=== PATIENT | female | born 1950 | race Caucasian/White ===

== ENCOUNTER 2017-05-08 13:18 | Inpatient (IN) | payer MEDICARE ==
[~2017-05-08] VITALS: Ht 170.2 cm; Wt 109.8 kg
[~2017-05-08 13:18] MED LIST: PANTOPRAZOLE 40 MG IV IVPush ONE
[2017-05-08] MEDS ORDERED: ENALAPRILAT 1.25 MG/ML, 2ML IV ONE (13:30)
[2017-05-08] MEDS ORDERED: ACETAMINOPHEN 325 MG TABLET PO ONE (13:30)
[2017-05-08] MEDS ORDERED: SODIUM CHLORIDE FLUSH 10ML SYR IVF ONE (13:30)
[2017-05-08] MEDS ORDERED: ENALAPRILAT 1.25 MG/ML, 2ML ONE (13:46)
[2017-05-08] MEDS ORDERED: ACETAMINOPHEN 325 MG TABLET ONE (13:46)
[2017-05-08] MEDS ORDERED: PLEASE ENTER ALLERGIES MC SCH ×2 (14:00)
[2017-05-08] MEDS ORDERED: PLEASE ENTER HEIGHT AND WEIGHT MC SCH (14:00)
[2017-05-08 14:01] LABS: ASPARTATE AMINO TRANSFERASE 24 U/L (15-37); BLOOD UREA NITROGEN 12 mg/dL (7-18)
[2017-05-08 14:05] LABS: IS PT STATUS REG ER OR PRE ER? YES
[2017-05-08] MEDS ORDERED: HYDROCHLOROTHIAZIDE 12.5 MG CAPSULE PO ONE (14:30)
[2017-05-08] MEDS ORDERED: BUDE10.2 INH (15:07)
[2017-05-08] MEDS ORDERED: PARO40TA3 PO (15:07)
[2017-05-08] MEDS ORDERED: CLOB15CR19 TP (15:07)
[2017-05-08] MEDS ORDERED: FLUT16SP NAS (15:07)
[2017-05-08] MEDS ORDERED: MULT-717 PO (15:07)
[2017-05-08] MEDS ORDERED: ALBU8.5H3 INH (15:07)
[2017-05-08] MEDS ORDERED: GLIP5TAB10 PO (15:07)
[2017-05-08] MEDS ORDERED: HYDR4CRE5 TP (15:07)
[2017-05-08] MEDS ORDERED: FEXO180T5 PO (15:07)
[2017-05-08] MEDS ORDERED: CARV6.252 PO (15:07)
[2017-05-08] MEDS ORDERED: BECL8.7A5 INH (15:07)
[2017-05-08] MEDS ORDERED: MONT10TA9 PO (15:07)
[2017-05-08] MEDS ORDERED: PIOG15TA4 PO (15:07)
[2017-05-08] MEDS ORDERED: ATOR80TA75 PO (15:07)
[2017-05-08] MEDS ORDERED: ASPI-496 PO (15:07)
[2017-05-08] MEDS ORDERED: TIOT18CA INH (15:07)
[2017-05-08] MEDS ORDERED: CIME300T PO (15:07)
[2017-05-08] MEDS ORDERED: METF10002 PO (15:07)
[2017-05-08] MEDS ORDERED: LANS15CA5 PO (15:07)
[2017-05-08] MEDS ORDERED: ENALAPRILAT 1.25 MG/ML, 2ML IVPush PRN (17:30)
[2017-05-08] MEDS: NICOTINE 14MG/24 HR PATCH.TD24 TD SCH (17:30)
[2017-05-08] MEDS ORDERED: HEPARIN 5,000 UNITS/ML, 1ML IV ONE (17:30)
[2017-05-08] MEDS ORDERED: morphine SULFATE 10 MG/ML, 1ML IVPush PRN (17:30)
[2017-05-08] MEDS ORDERED: ENOXAPARIN 40 MG/0.4 ML SQ SCH (17:30)
[2017-05-08] MEDS ORDERED: ONDANSETRON 2MG/ML, 2ML IVPush PRN (17:30)
[2017-05-08] MEDS ORDERED: HYDROcodone/APAP 5/325 TABLET PO PRN (17:30)
[2017-05-08] MEDS ORDERED: HEPARIN 25,000 UNITS/500ML PMX 500 ML IV PRN (17:30)
[2017-05-08] MEDS ORDERED: HEPARIN 5,000 UNITS/ML, 1ML IV PRN (17:30)
[2017-05-08 17:54] VITALS: BP 172/88
[2017-05-08] MEDS: CARVEDILOL 12.5 MG TABLET PO SCH (19:16)
[2017-05-08 20:24] LABS: IS PT STATUS REG ER OR PRE ER? NO
[2017-05-08 20:35] VITALS: BP 120/71
[2017-05-08] MEDS: ATORVASTATIN 80 MG TABLET PO SCH (20:36)
[2017-05-08] MEDS: TEMAZEPAM 15 MG CAPSULE PO PRN (22:18)
[2017-05-09 01:34] VITALS: BP 130/79
[2017-05-09 02:42] LABS: ASPARTATE AMINO TRANSFERASE 23 U/L (15-37); BLOOD UREA NITROGEN 16 mg/dL (7-18)
[2017-05-09 02:48] LABS: IS PT STATUS REG ER OR PRE ER? NO
[2017-05-09] MEDS: ASPIRIN 81 MG TABLET EC PO SCH (06:13)
[2017-05-09] MEDS: CARVEDILOL 12.5 MG TABLET PO SCH ×2 (06:13→17:25)
[2017-05-09 08:39] VITALS: BP 161/83
[2017-05-09] MEDS: FERROUS GLUCONATE 324 MG TABLET PO SCH (08:52)
[2017-05-09] MEDS: VALSARTAN 160 MG TABLET PO SCH (08:52)
[2017-05-09] MEDS ORDERED: POTASSIUM CHLORIDE 20 MEQ TAB.ER.PRT PO ONE ×3 (09:00→14:30)
[2017-05-09 09:26] LABS: TOTAL IRON BINDING CAPACITY 408 mcg/dL (250-450)
[2017-05-09] MEDS: IRON SUCROSE COMPLEX 100MG/5ML IV SCH (10:52)
[2017-05-09] MEDS ORDERED: SODIUM CHLORIDE 0.9% 1,000 ML IV SCH (12:35)
[2017-05-09 12:45] VITALS: BP 132/78
[2017-05-09] MEDS ORDERED: FENTANYL PF 100 MCG/2ML ONE (13:28)
[2017-05-09] MEDS ORDERED: MIDAZOLAM 1 MG/ML, 5ML ONE (13:28)
[2017-05-09] MEDS ORDERED: VERAPAMIL 2.5 MG/ML, 2ML ONE (13:28)
[2017-05-09] MEDS ORDERED: LIDOCAINE 2%, 20ML ONE (13:29)
[2017-05-09] MEDS ORDERED: HEPARIN 1,000 UNITS/ML, 10ML ONE (13:29)
[2017-05-09] MEDS: PANTOPRAZOLE 40 MG IV IVPush SCH (14:30)
[2017-05-09] MEDS ORDERED: ACETAMINOPHEN 325 MG TABLET PO PRN (14:30)
[2017-05-09] MEDS: SODIUM CHLORIDE 0.9% 1,000 ML IV SCH ×2 (14:50→23:32)
[2017-05-09] MEDS: PANTOPRAZOLE 80 MG in SODIUM CHLORIDE 0.9% 100 ML IV SCH ×2 (14:50→23:32)
[2017-05-09] MEDS: SUCRALFATE 1 GM TABLET PO SCH ×2 (14:51→21:11)
[2017-05-09] MEDS: NICOTINE 14MG/24 HR PATCH.TD24 TD SCH (14:51)
[2017-05-09] MEDS ORDERED: DICYCLOMINE 10 MG CAPSULE PO ONE (21:00)
[2017-05-09] MEDS: PAROXETINE 20 MG TABLET PO SCH (21:12)
[2017-05-09] MEDS: ATORVASTATIN 80 MG TABLET PO SCH (21:12)
[2017-05-09] MEDS: TEMAZEPAM 15 MG CAPSULE PO PRN (21:12)
[2017-05-09 21:13] VITALS: BP 121/72
[2017-05-10] VITALS (14 sets, daily range): BP systolic 104–154; BP diastolic 66–82
[2017-05-10] MEDS: PANTOPRAZOLE 40 MG IV IVPush SCH (02:30)
[2017-05-10 05:56] LABS: BLOOD UREA NITROGEN 13 mg/dL (7-18)
[2017-05-10] MEDS: ASPIRIN 81 MG TABLET EC PO SCH (06:02)
[2017-05-10] MEDS: CARVEDILOL 12.5 MG TABLET PO SCH ×2 (06:02→18:15)
[2017-05-10] MEDS ORDERED: FUROSEMIDE 40 MG/4 ML IV ONE (06:05)
[2017-05-10] MEDS: SODIUM CHLORIDE 0.9% 1,000 ML IV SCH (06:11)
[2017-05-10] MEDS ORDERED: DEXTROSE 50%, 50ML SYRINGE IVPush PRN (08:00)
[2017-05-10] MEDS ORDERED: GLUCAGON 1 MG IM PRN (08:00)
[2017-05-10] MEDS: FERROUS GLUCONATE 324 MG TABLET PO SCH (08:00)
[2017-05-10] MEDS: INSULIN REGULAR 100 UNITS/ML, 3ML VIAL SQ-INSULIN SCH ×4 (08:00→20:58)
[2017-05-10] MEDS ORDERED: DEXTROSE 4 GM TAB.CHEW PO PRN (08:00)
[2017-05-10] MEDS: SUCRALFATE 1 GM TABLET PO SCH ×4 (08:25→20:42)
[2017-05-10] MEDS ORDERED: DICYCLOMINE 10 MG CAPSULE PO PRN (09:00)
[2017-05-10 09:25] LABS: IS PT STATUS REG ER OR PRE ER? NO
[2017-05-10] MEDS: PANTOPRAZOLE 80 MG in SODIUM CHLORIDE 0.9% 100 ML IV SCH ×2 (09:41→18:15)
[2017-05-10] MEDS: VALSARTAN 160 MG TABLET PO SCH (10:10)
[2017-05-10] MEDS: IRON SUCROSE COMPLEX 100MG/5ML IV SCH (10:10)
[2017-05-10] MEDS: SODIUM CHLORIDE FLUSH 10ML SYR IVF SCH ×2 (10:10→20:43)
[2017-05-10] MEDS ORDERED: INSULIN ASPART 100 UNITS/ML, PEN SQ-INSULIN SCH (11:00)
[2017-05-10] MEDS ORDERED: CHLORHEXIDINE MOUTHWASH 15 ML UDC MM PRN (11:00)
[2017-05-10] MEDS: DOCUSATE 100 MG CAPSULE PO SCH ×2 (12:07→20:42)
[2017-05-10] MEDS ORDERED: FUROSEMIDE 40 MG/4 ML ONE (14:10)
[2017-05-10] MEDS ORDERED: NITROGLYCERIN 0.4 MG/SPRAY SL PRN (19:30)
[2017-05-10] MEDS ORDERED: NITROGLYCERIN 0.4 MG BOTTLE (25 TABS) SL PRN (19:30)
[2017-05-10] MEDS ORDERED: NITROGLYCERIN OINT 2%, 1GM TP ONE (20:30)
[2017-05-10] MEDS: PAROXETINE 20 MG TABLET PO SCH (20:42)
[2017-05-10] MEDS: ATORVASTATIN 80 MG TABLET PO SCH (20:42)
[2017-05-10] MEDS: TEMAZEPAM 15 MG CAPSULE PO PRN ×2 (20:42→23:40)
[2017-05-10] MEDS: MUPIROCIN OINT 2%, 22GM TP SCH (20:43)
[2017-05-10] MEDS ORDERED: SODIUM CHLORIDE FLUSH 10ML SYR IVF SCH (21:00)
[2017-05-11] MEDS: ASPIRIN 81 MG TABLET EC PO SCH (03:13)
[2017-05-11 04:17] VITALS: BP_SYST 145; BP_SYST 151; BP_DIAS 80; BP_DIAS 86
[2017-05-11] MEDS: CARVEDILOL 12.5 MG TABLET PO SCH (05:00)
[2017-05-11] MEDS: MUPIROCIN OINT 2%, 22GM TP SCH ×2 (05:00→21:31)
[2017-05-11] MEDS ORDERED: METOPROLOL TARTRATE 25 MG TABLET PO ONE (05:00)
[2017-05-11 05:06] LABS: BLOOD UREA NITROGEN 17 mg/dL (7-18)
[2017-05-11 05:09] LABS: ASPARTATE AMINO TRANSFERASE 17 U/L (15-37)
[2017-05-11] MEDS: PANTOPRAZOLE 80 MG in SODIUM CHLORIDE 0.9% 100 ML IV SCH ×2 (05:33→15:48)
[2017-05-11 06:33] VITALS: BP 132/77
[2017-05-11] MEDS: SUCRALFATE 1 GM TABLET PO SCH ×4 (07:00→21:55)
[2017-05-11] MEDS ORDERED: MANNITOL PMX 20% 500 ML IVPB PRN (07:30)
[2017-05-11] MEDS ORDERED: PHENYLEPHRINE 10 MG in SODIUM CHLORIDE 0.9% 249 ML IV PRN ×2 (07:30→13:06)
[2017-05-11] MEDS ORDERED: REGULAR INSULIN 62.5 UNITS in SODIUM CHLORIDE 0.9% 249.375 ML IV PRN ×2 (07:30→13:06)
[2017-05-11] MEDS ORDERED: DEXMEDETOMIDINE 200 MCG in SODIUM CHLORIDE 0.9% 48 ML IV SCH (07:30)
[2017-05-11] MEDS ORDERED: ALBUMIN HUMAN 5% 500 ML IV ONE (07:30)
[2017-05-11] MEDS ORDERED: FENTANYL PF 1000 MCG/20ML ONE (07:30)
[2017-05-11] MEDS ORDERED: CEFUROXIME 1.5 GM in SODIUM CHLORIDE 0.9% 50 ML IVPB PRN (07:30)
[2017-05-11] MEDS ORDERED: VANCOMYCIN 1,500 MG in SODIUM CHLORIDE 0.9% 250 ML IVPB PRN (07:30)
[2017-05-11] MEDS ORDERED: EPINEPHRINE 2 MG in SODIUM CHLORIDE 0.9% 248 ML IV SCH (07:30)
[2017-05-11] MEDS ORDERED: POTASSIUM CHLORIDE 80 MEQ, SODIUM BICARBONATE 8.4% 10 MEQ, MAGNESIUM SULFATE 0.5 GM, LI... IV PRN (07:30)
[2017-05-11] MEDS ORDERED: MIDAZOLAM 10MG/2 ML ONE (07:30)
[2017-05-11] MEDS ORDERED: ROCURONIUM 10 MG/ML ONE (08:04)
[2017-05-11] MEDS ORDERED: PROPOFOL 10 MG/ML, 20ML ONE (08:04)
[2017-05-11] MEDS: IRON SUCROSE COMPLEX 100MG/5ML IV SCH ×2 (09:00→17:08)
[2017-05-11] MEDS: DOCUSATE 100 MG CAPSULE PO SCH ×2 (09:00→21:31)
[2017-05-11] MEDS ORDERED: HEPARIN 1,000 UNITS/ML, 10ML IV ONE (09:07)
[2017-05-11] MEDS ORDERED: PAPAVERINE 30 MG/ML, 2ML IVPush ONE (09:07)
[2017-05-11] MEDS ORDERED: SODIUM CHLORIDE 0.9% 1,000 ML IV ONE (13:06)
[2017-05-11] MEDS ORDERED: SODIUM CHLORIDE 0.9% 1,000 ML IV PRN (13:06)
[2017-05-11] MEDS ORDERED: DEXMEDETOMIDINE 200 MCG in SODIUM CHLORIDE 0.9% 48 ML IV PRN (13:06)
[2017-05-11] MEDS ORDERED: NITROGLYCERIN/D5W PMX 250 ML IV PRN (13:06)
[2017-05-11] MEDS ORDERED: DOBUTAMINE 250 MG in SODIUM CHLORIDE 0.9% 230 ML IV PRN (13:06)
[2017-05-11] MEDS ORDERED: ALBUMIN HUMAN 25% 50 ML ONE (13:23)
[2017-05-11] MEDS ORDERED: AMINOCAPROIC ACID 250 MG/ML, 20ML ONE (13:23)
[2017-05-11] MEDS ORDERED: PROTAMINE SULFATE 10 MG/ML, 25ML ONE (13:23)
[2017-05-11] MEDS ORDERED: CALCIUM CHLORIDE 10%, 10ML SYR ONE (13:23)
[2017-05-11] MEDS ORDERED: SODIUM BICARBONATE 1 MEQ/ML, 50ML VIAL ONE (13:24)
[2017-05-11] MEDS ORDERED: HEPARIN 1,000 UNITS/ML, 30ML ONE ×2 (13:24→13:27)
[2017-05-11] MEDS ORDERED: methylPREDNISolone SOD SUCC 125 MG/2 ML ONE (13:25)
[2017-05-11] MEDS ORDERED: LIDOCAINE 2% 100MG/5ML SYRINGE ONE (13:25)
[2017-05-11] MEDS ORDERED: MILRINONE 1 MG/ML, 10ML IV ONE (13:25)
[2017-05-11] MEDS ORDERED: PAPAVERINE 30 MG/ML, 2ML ONE (13:25)
[2017-05-11] MEDS ORDERED: VASOPRESSIN 20 UNIT/ML, 1ML ONE (13:26)
[2017-05-11] MEDS ORDERED: HEPARIN 1,000 UNITS/ML, 10ML ONE (13:29)
[2017-05-11] MEDS ORDERED: BISACODYL 5 MG EC TABLET PO PRN (13:30)
[2017-05-11] MEDS ORDERED: MIDAZOLAM 1 MG/ML, 5ML IVPush PRN (13:30)
[2017-05-11] MEDS ORDERED: GLUCAGON 1 MG IM PRN (13:30)
[2017-05-11] MEDS ORDERED: EPINEPHRINE 2 MG in SODIUM CHLORIDE 0.9% 248 ML IV PRN (13:30)
[2017-05-11] MEDS ORDERED: PROCHLORPERAZINE 5 MG/ML, 2ML IVPush PRN (13:30)
[2017-05-11] MEDS ORDERED: DEXTROSE 50%, 50ML SYRINGE IVPush PRN (13:30)
[2017-05-11] MEDS ORDERED: SODIUM BICARB 8.4%, 50ML SYRINGE IV PRN (13:30)
[2017-05-11] MEDS ORDERED: CEFUROXIME 1.5 GM in SODIUM CHLORIDE 0.9% 50 ML IVPB SCH (13:30)
[2017-05-11] MEDS ORDERED: MEPERIDINE/PF 25MG/0.5ML IVPush PRN (13:30)
[2017-05-11] MEDS: KSCALE TO 4.5 IV SCH ×2 (13:30→19:30)
[2017-05-11] MEDS ORDERED: ACETAMINOPHEN 650 MG SUPP PR PRN (13:30)
[2017-05-11] MEDS ORDERED: HYDROcodone/APAP 10/325 MG TABLET PO PRN (13:30)
[2017-05-11] MEDS ORDERED: BISACODYL 10 MG SUPP PR PRN (13:30)
[2017-05-11] MEDS ORDERED: DEXTROSE 4 GM TAB.CHEW PO PRN (13:30)
[2017-05-11] MEDS ORDERED: ACETAMINOPHEN 325 MG TABLET PO PRN (13:30)
[2017-05-11] MEDS ORDERED: LACTATED RINGERS 500 ML IVBOLUS PRN (13:30)
[2017-05-11 13:35] LABS: ABG COLLECTION SITE ARTERIAL LINE; FIO2 100 %
[2017-05-11] MEDS ORDERED: POTASSIUM CHLORIDE PMX 100 ML IV ONE (14:30)
[2017-05-11] MEDS: MAGNESIUM SULFATE 1 GM in SODIUM CHLORIDE 0.9% 50 ML IVPB SCH (15:48)
[2017-05-11] MEDS: morphine SULFATE 10 MG/ML, 1ML IVPush PRN ×2 (17:07→19:35)
[2017-05-11] MEDS: VANCOMYCIN 1,500 MG in SODIUM CHLORIDE 0.9% 250 ML IVPB SCH (19:36)
[2017-05-11] MEDS: SODIUM CHLORIDE FLUSH 10ML SYR IVF SCH (19:36)
[2017-05-11] MEDS: INSULIN ASPART 100 UNITS/ML, PEN SQ-INSULIN PRN ×3 (20:44→22:36)
[2017-05-11] MEDS ORDERED: DOCUSATE 100 MG CAPSULE PO SCH (21:00)
[2017-05-11] MEDS ORDERED: MUPIROCIN OINT 2%, 22GM NAS SCH (21:00)
[2017-05-11] MEDS: OXYcodone IR 5MG TABLET PO PRN (21:43)
[2017-05-11] MEDS: ACETAMINOPHEN 325 MG TABLET PO PRN (21:43)
[2017-05-11] MEDS: TEMAZEPAM 15 MG CAPSULE PO PRN ×2 (21:43→23:38)
[2017-05-11] MEDS: ATORVASTATIN 80 MG TABLET PO SCH (21:55)
[2017-05-11] MEDS: PAROXETINE 20 MG TABLET PO SCH (21:55)
[2017-05-12] MEDS: KSCALE TO 4.5 IV SCH ×4 (01:30→19:30)
[2017-05-12] MEDS: PANTOPRAZOLE 80 MG in SODIUM CHLORIDE 0.9% 100 ML IV SCH (01:58)
[2017-05-12] MEDS: OXYcodone IR 5MG TABLET PO PRN ×5 (03:04→19:32)
[2017-05-12 04:51] LABS: ABG COLLECTION SITE ARTERIAL LINE
[2017-05-12] MEDS: INSULIN ASPART 100 UNITS/ML, PEN SQ-INSULIN PRN ×4 (05:32→21:14)
[2017-05-12] MEDS: ACETAMINOPHEN 325 MG TABLET PO PRN (05:39)
[2017-05-12 06:29] LABS: BLOOD UREA NITROGEN 21 mg/dL (7-18)
[2017-05-12] MEDS: ASPIRIN 81 MG TABLET EC PO SCH (07:52)
[2017-05-12] MEDS: SUCRALFATE 1 GM TABLET PO SCH ×4 (07:52→20:59)
[2017-05-12] MEDS: VANCOMYCIN 1,500 MG in SODIUM CHLORIDE 0.9% 250 ML IVPB SCH (07:52)
[2017-05-12] MEDS: IRON SUCROSE COMPLEX 100MG/5ML IV SCH (08:34)
[2017-05-12] MEDS: CARVEDILOL 3.125 MG TABLET PO SCH ×2 (08:34→17:54)
[2017-05-12] MEDS: SODIUM CHLORIDE FLUSH 10ML SYR IVF SCH ×2 (08:34→20:58)
[2017-05-12] MEDS: DOCUSATE 100 MG CAPSULE PO SCH ×2 (08:34→21:02)
[2017-05-12] MEDS: MUPIROCIN OINT 2%, 22GM TP SCH ×2 (08:35→21:07)
[2017-05-12] MEDS ORDERED: PANTOPRAZOLE 40 MG IV IVPush SCH (09:00)
[2017-05-12] MEDS ORDERED: FUROSEMIDE 20 MG/2 ML ONE (09:15)
[2017-05-12] MEDS ORDERED: FUROSEMIDE 20 MG/2 ML IV ONE (09:30)
[2017-05-12] MEDS: PANTOPROZOLE 40MG TABLET PO SCH (10:15)
[2017-05-12] MEDS ORDERED: HYDROcodone/APAP 10/325 MG TABLET ONE (13:31)
[2017-05-12] MEDS: MAGNESIUM SULFATE 1 GM in SODIUM CHLORIDE 0.9% 50 ML IVPB SCH (13:32)
[2017-05-12] MEDS: CHLORHEXIDINE MOUTHWASH 15 ML UDC MM SCH (13:32)
[2017-05-12] MEDS: HYDROcodone/APAP 10/325 MG TABLET PO PRN ×3 (13:37→23:08)
[2017-05-12] MEDS: ATORVASTATIN 80 MG TABLET PO SCH (20:59)
[2017-05-12] MEDS: PAROXETINE 20 MG TABLET PO SCH (21:00)
[2017-05-12] MEDS: TEMAZEPAM 15 MG CAPSULE PO PRN ×2 (21:01→23:07)
[2017-05-13] MEDS: INSULIN ASPART 100 UNITS/ML, PEN SQ-INSULIN PRN ×6 (01:23→20:58)
[2017-05-13] MEDS: KSCALE TO 4.5 IV SCH ×2 (01:30→07:30)
[2017-05-13] MEDS: OXYcodone IR 5MG TABLET PO PRN ×3 (01:44→11:56)
[2017-05-13] MEDS: CHLORHEXIDINE MOUTHWASH 15 ML UDC MM SCH ×2 (01:49→11:47)
[2017-05-13 04:22] LABS: ABG COLLECTION SITE RIGHT RADIAL; COLLATERAL CIRCULATION TESTING NORMAL
[2017-05-13] MEDS: HYDROcodone/APAP 10/325 MG TABLET PO PRN ×3 (04:40→17:07)
[2017-05-13 05:06] LABS: BLOOD UREA NITROGEN 28 mg/dL (7-18)
[2017-05-13] MEDS: ASPIRIN 81 MG TABLET EC PO SCH (06:43)
[2017-05-13] MEDS: SUCRALFATE 1 GM TABLET PO SCH ×4 (07:06→20:38)
[2017-05-13] MEDS: CARVEDILOL 3.125 MG TABLET PO SCH ×2 (08:00→18:00)
[2017-05-13] MEDS ORDERED: ALBUMIN HUMAN 5% 250 ML IV ONE ×2 (08:00→09:00)
[2017-05-13] MEDS ORDERED: CALCIUM CHLORIDE 13.6 MEQ in SODIUM CHLORIDE 0.9% 100 ML IV ONE (08:00)
[2017-05-13] MEDS: DOCUSATE 100 MG CAPSULE PO SCH ×2 (08:12→20:38)
[2017-05-13] MEDS: MUPIROCIN OINT 2%, 22GM TP SCH ×2 (08:12→20:39)
[2017-05-13] MEDS: SODIUM CHLORIDE FLUSH 10ML SYR IVF SCH ×2 (08:12→20:38)
[2017-05-13] MEDS: IRON SUCROSE COMPLEX 100MG/5ML IV SCH (08:12)
[2017-05-13] MEDS: PANTOPROZOLE 40MG TABLET PO SCH (08:13)
[2017-05-13] MEDS: ONDANSETRON 2MG/ML, 2ML IVPush PRN ×2 (08:44→17:07)
[2017-05-13] MEDS ORDERED: POLYETHYLENE GLYCOL 17 GM PACKET NG ONE (11:00)
[2017-05-13] MEDS ORDERED: ALBUTEROL SULFATE 2.5 MG/3 ML ONE (12:55)
[2017-05-13] MEDS ORDERED: ALBUTEROL SULFATE 2.5 MG/3 ML NPPB PRN (13:00)
[2017-05-13] MEDS: MAGNESIUM SULFATE 1 GM in SODIUM CHLORIDE 0.9% 50 ML IVPB SCH (13:34)
[2017-05-13] MEDS: FLUTICASONE/VILANTEROL 100-25MCG/INH INH SCH (17:34)
[2017-05-13] MEDS: ATORVASTATIN 80 MG TABLET PO SCH (20:39)
[2017-05-13] MEDS: PAROXETINE 20 MG TABLET PO SCH (20:39)
[2017-05-13] MEDS: TEMAZEPAM 15 MG CAPSULE PO PRN (21:02)
[2017-05-14] MEDS: CHLORHEXIDINE MOUTHWASH 15 ML UDC MM SCH (00:50)
[2017-05-14] MEDS: INSULIN ASPART 100 UNITS/ML, PEN SQ-INSULIN PRN ×5 (01:05→20:41)
[2017-05-14] MEDS: ONDANSETRON 2MG/ML, 2ML IVPush PRN ×2 (03:01→16:57)
[2017-05-14 06:47] LABS: BLOOD UREA NITROGEN 35 mg/dL (7-18)
[2017-05-14] MEDS: ASPIRIN 81 MG TABLET EC PO SCH (06:48)
[2017-05-14] MEDS: OXYcodone IR 5MG TABLET PO PRN ×2 (06:50→12:03)
[2017-05-14] MEDS ORDERED: CLOPIDOGREL 75 MG TABLET PO SCH (09:00)
[2017-05-14] MEDS: SUCRALFATE 1 GM TABLET PO SCH ×4 (09:39→20:43)
[2017-05-14] MEDS: PANTOPROZOLE 40MG TABLET PO SCH (09:39)
[2017-05-14] MEDS: FLUTICASONE/VILANTEROL 100-25MCG/INH INH SCH (09:39)
[2017-05-14] MEDS: DOCUSATE 100 MG CAPSULE PO SCH ×2 (09:39→20:43)
[2017-05-14] MEDS: SODIUM CHLORIDE FLUSH 10ML SYR IVF SCH ×2 (09:40→20:42)
[2017-05-14] MEDS: MUPIROCIN OINT 2%, 22GM TP SCH ×2 (09:40→20:43)
[2017-05-14] MEDS: CARVEDILOL 3.125 MG TABLET PO SCH ×2 (09:40→16:57)
[2017-05-14] MEDS: BISACODYL 5 MG EC TABLET PO PRN (16:58)
[2017-05-14] MEDS: ACETAMINOPHEN 325 MG TABLET PO PRN (18:29)
[2017-05-14] MEDS: PAROXETINE 20 MG TABLET PO SCH (20:43)
[2017-05-14] MEDS: ATORVASTATIN 80 MG TABLET PO SCH (20:43)
[2017-05-14] MEDS: TEMAZEPAM 15 MG CAPSULE PO PRN (20:53)
[2017-05-15] MEDS: INSULIN ASPART 100 UNITS/ML, PEN SQ-INSULIN PRN ×6 (00:30→21:49)
[2017-05-15] MEDS: OXYcodone IR 5MG TABLET PO PRN ×6 (04:19→23:50)
[2017-05-15 04:53] LABS: BLOOD UREA NITROGEN 27 mg/dL (7-18)
[2017-05-15] MEDS: CARVEDILOL 3.125 MG TABLET PO SCH (06:19)
[2017-05-15] MEDS: ASPIRIN 81 MG TABLET EC PO SCH (06:20)
[2017-05-15] MEDS: BISACODYL 5 MG EC TABLET PO PRN (06:20)
[2017-05-15] MEDS: ACETAMINOPHEN 325 MG TABLET PO PRN (06:26)
[2017-05-15] MEDS: FLUTICASONE/VILANTEROL 100-25MCG/INH INH SCH (08:16)
[2017-05-15] MEDS: SODIUM CHLORIDE FLUSH 10ML SYR IVF SCH ×3 (08:16→21:40)
[2017-05-15] MEDS: SUCRALFATE 1 GM TABLET PO SCH ×4 (08:16→21:39)
[2017-05-15] MEDS: PANTOPROZOLE 40MG TABLET PO SCH (08:16)
[2017-05-15] MEDS: MUPIROCIN OINT 2%, 22GM TP SCH ×2 (08:17→21:40)
[2017-05-15] MEDS: DOCUSATE 100 MG CAPSULE PO SCH ×2 (08:17→21:39)
[2017-05-15] MEDS: ONDANSETRON 2MG/ML, 2ML IVPush PRN ×3 (08:26→23:45)
[2017-05-15] MEDS: IRON SUCROSE COMPLEX 100MG/5ML IV SCH (09:30)
[2017-05-15 12:38] VITALS: BP 137/83
[2017-05-15 18:33] VITALS: BP 140/84
[2017-05-15] MEDS: CARVEDILOL 6.25 MG TABLET PO SCH (18:33)
[2017-05-15] MEDS ORDERED: ACETAMINOPHEN 650 MG SUPP PR PRN (19:00)
[2017-05-15] MEDS ORDERED: BISACODYL 10 MG SUPP PR PRN (19:00)
[2017-05-15] MEDS ORDERED: DEXTROSE 50%, 50ML SYRINGE IVPush PRN (19:00)
[2017-05-15 21:31] VITALS: BP 121/80
[2017-05-15] MEDS: TEMAZEPAM 15 MG CAPSULE PO PRN (21:39)
[2017-05-15] MEDS: ATORVASTATIN 80 MG TABLET PO SCH (21:39)
[2017-05-15] MEDS: PAROXETINE 20 MG TABLET PO SCH (21:39)
[2017-05-16 03:50] VITALS: BP 126/79
[2017-05-16 05:25] LABS: BLOOD UREA NITROGEN 14 mg/dL (7-18); TOTAL IRON BINDING CAPACITY 226 mcg/dL (250-450)
[2017-05-16] MEDS: ASPIRIN 81 MG TABLET EC PO SCH (06:27)
[2017-05-16] MEDS: OXYcodone IR 5MG TABLET PO PRN ×5 (06:27→21:08)
[2017-05-16] MEDS: CARVEDILOL 6.25 MG TABLET PO SCH ×2 (06:28→17:17)
[2017-05-16] MEDS: ONDANSETRON 2MG/ML, 2ML IVPush PRN ×2 (08:00→16:32)
[2017-05-16] MEDS: MUPIROCIN OINT 2%, 22GM TP SCH ×2 (08:59→21:07)
[2017-05-16 09:05] VITALS: BP 130/80
[2017-05-16] MEDS: FLUTICASONE/VILANTEROL 100-25MCG/INH INH SCH (09:14)
[2017-05-16] MEDS: LISINOPRIL 5 MG TABLET PO SCH (09:14)
[2017-05-16] MEDS: INSULIN ASPART 100 UNITS/ML, PEN SQ-INSULIN PRN ×4 (09:14→21:08)
[2017-05-16] MEDS: IRON SUCROSE COMPLEX 100MG/5ML IV SCH (09:14)
[2017-05-16] MEDS: SUCRALFATE 1 GM TABLET PO SCH ×4 (09:15→21:07)
[2017-05-16] MEDS: PANTOPROZOLE 40MG TABLET PO SCH (09:15)
[2017-05-16] MEDS: SODIUM CHLORIDE FLUSH 10ML SYR IVF SCH ×4 (09:16→21:07)
[2017-05-16] MEDS: DOCUSATE 100 MG CAPSULE PO SCH ×2 (11:57→21:07)
[2017-05-16 12:43] VITALS: BP 150/90
[2017-05-16 18:57] VITALS: BP 133/77
[2017-05-16 20:36] VITALS: BP 111/70
[2017-05-16] MEDS: PAROXETINE 20 MG TABLET PO SCH (21:07)
[2017-05-16] MEDS: ATORVASTATIN 80 MG TABLET PO SCH (21:07)
[2017-05-16] MEDS: TEMAZEPAM 15 MG CAPSULE PO PRN (21:08)
[2017-05-17] MEDS: OXYcodone IR 5MG TABLET PO PRN ×4 (00:10→18:47)
[2017-05-17 00:39] VITALS: BP 120/78
[2017-05-17] MEDS: ASPIRIN 81 MG TABLET EC PO SCH (05:57)
[2017-05-17] MEDS: CARVEDILOL 6.25 MG TABLET PO SCH ×2 (05:57→16:59)
[2017-05-17] MEDS: ONDANSETRON 2MG/ML, 2ML IVPush PRN ×3 (06:19→20:14)
[2017-05-17 06:20] LABS: BLOOD UREA NITROGEN 12 mg/dL (7-18)
[2017-05-17 06:45] VITALS: BP 132/82
[2017-05-17] MEDS: FLUTICASONE/VILANTEROL 100-25MCG/INH INH SCH (08:59)
[2017-05-17] MEDS: INSULIN ASPART 100 UNITS/ML, PEN SQ-INSULIN PRN ×4 (08:59→20:13)
[2017-05-17] MEDS: DOCUSATE 100 MG CAPSULE PO SCH ×2 (09:00→20:13)
[2017-05-17] MEDS: MUPIROCIN OINT 2%, 22GM TP SCH ×2 (09:00→20:14)
[2017-05-17] MEDS: LISINOPRIL 5 MG TABLET PO SCH (09:00)
[2017-05-17] MEDS: SUCRALFATE 1 GM TABLET PO SCH ×4 (09:00→20:13)
[2017-05-17] MEDS: SODIUM CHLORIDE FLUSH 10ML SYR IVF SCH ×4 (09:00→20:14)
[2017-05-17] MEDS: IRON SUCROSE COMPLEX 100MG/5ML IV SCH (09:00)
[2017-05-17] MEDS: PANTOPROZOLE 40MG TABLET PO SCH (09:00)
[2017-05-17] MEDS ORDERED: MAGNESIUM HYDROXIDE 8%, 30ML UDC PO PRN (12:30)
[2017-05-17 12:50] VITALS: BP 145/84
[2017-05-17] MEDS: BISACODYL 5 MG EC TABLET PO PRN (12:52)
[2017-05-17] MEDS: ATORVASTATIN 80 MG TABLET PO SCH (20:13)
[2017-05-17] MEDS: PAROXETINE 20 MG TABLET PO SCH (20:13)
[2017-05-17] MEDS: TEMAZEPAM 15 MG CAPSULE PO PRN ×2 (20:13→21:45)
[2017-05-17 20:33] VITALS: BP 139/78
[2017-05-18 02:00] VITALS: BP 146/82
[2017-05-18] MEDS: ASPIRIN 81 MG TABLET EC PO SCH (05:56)
[2017-05-18] MEDS: OXYcodone IR 5MG TABLET PO PRN ×3 (05:56→13:56)
[2017-05-18] MEDS: CARVEDILOL 6.25 MG TABLET PO SCH (05:56)
[2017-05-18 06:26] LABS: BLOOD UREA NITROGEN 10 mg/dL (7-18)
[2017-05-18] MEDS ORDERED: FURO-93 PO (08:04)
[2017-05-18] MEDS ORDERED: LISI5TAB7 PO (08:04)
[2017-05-18] MEDS ORDERED: TEMA15CA6 PO (08:04)
[2017-05-18] MEDS ORDERED: SUCR1TAB26 PO (08:04)
[2017-05-18] MEDS ORDERED: POTA10TA90 PO (08:04)
[2017-05-18] MEDS: PANTOPROZOLE 40MG TABLET PO SCH (08:27)
[2017-05-18] MEDS: SUCRALFATE 1 GM TABLET PO SCH ×2 (08:27→12:04)
[2017-05-18] MEDS: LISINOPRIL 5 MG TABLET PO SCH (08:27)
[2017-05-18] MEDS: FLUTICASONE/VILANTEROL 100-25MCG/INH INH SCH (08:27)
[2017-05-18] MEDS: DOCUSATE 100 MG CAPSULE PO SCH (08:27)
[2017-05-18] MEDS: MUPIROCIN OINT 2%, 22GM TP SCH (08:27)
[2017-05-18] MEDS: SODIUM CHLORIDE FLUSH 10ML SYR IVF SCH ×2 (08:27→08:28)
[2017-05-18] MEDS: INSULIN ASPART 100 UNITS/ML, PEN SQ-INSULIN PRN (08:29)
[2017-05-18 08:54] VITALS: BP 125/85
[2017-05-18] MEDS ORDERED: FUROSEMIDE 20 MG TABLET PO SCH (09:00)
[2017-05-18] MEDS: ONDANSETRON 2MG/ML, 2ML IVPush PRN (10:31)
[2017-05-18] MEDS: BISACODYL 5 MG EC TABLET PO PRN (10:31)
[2017-05-19] MEDS ORDERED: POTASSIUM CHLORIDE 10 MEQ TABLET.ER PO SCH (08:00)
== END 2017-05-18 14:10 | DRG 233 ==
LOC: ED 14:21 → EDIP 14:22 → ED 14:24 → 5SO 17:03 → CCU 05-11 07:37 → CSU 05-11 10:33 → 5SO 05-15 12:32
PROVIDERS: ADMIT Internal Medicine; ATTEND Internal Medicine
PROC: B2111ZZ Fluoroscopy of Multiple Coronary Arteries using Low Osmolar Contrast (ICD-10-PCS; 2017-05-09)
PROC: B2151ZZ Fluoroscopy of Left Heart using Low Osmolar Contrast (ICD-10-PCS; 2017-05-09)
PROC: 4A023N7 Measurement of Cardiac Sampling and Pressure, Left Heart, Percutaneous Approach (ICD-10-PCS; 2017-05-09)
PROC: 021309W Bypass Coronary Artery, Four or More Arteries from Aorta with Autologous Venous Tissue, Open Approach (ICD-10-PCS; 2017-05-11)
PROC: 06BP4ZZ Excision of Right Saphenous Vein, Percutaneous Endoscopic Approach (ICD-10-PCS; 2017-05-11)
PROC: 5A1221Z Performance of Cardiac Output, Continuous (ICD-10-PCS; 2017-05-11)
PROC: 30233N1 Transfusion of Nonautologous Red Blood Cells into Peripheral Vein, Percutaneous Approach (ICD-10-PCS; 2017-05-11)
PROC: 30233R1 Transfusion of Nonautologous Platelets into Peripheral Vein, Percutaneous Approach (ICD-10-PCS; 2017-05-11)
PROC: 02100Z9 Bypass Coronary Artery, One Artery from Left Internal Mammary, Open Approach (ICD-10-PCS; principal; 2017-05-11 08:00)
DX: I25.110 Atherosclerotic heart disease of native coronary artery with unstable angina pectoris (principal); I21.4 Non-ST elevation (NSTEMI) myocardial infarction; I50.31 Acute diastolic (congestive) heart failure; J93.82 Other air leak; J98.11 Atelectasis; K92.2 Gastrointestinal hemorrhage, unspecified; D64.9 Anemia, unspecified; I25.5 Ischemic cardiomyopathy; E11.9 Type 2 diabetes mellitus without complications; D50.9 Iron deficiency anemia, unspecified; E66.9 Obesity, unspecified; E78.5 Hyperlipidemia, unspecified; E83.42 Hypomagnesemia; F32.9 Major depressive disorder, single episode, unspecified; G89.4 Chronic pain syndrome; I11.0 Hypertensive heart disease with heart failure; I16.0 Hypertensive urgency; M54.9 Dorsalgia, unspecified; I08.0 Rheumatic disorders of both mitral and aortic valves; J44.9 Chronic obstructive pulmonary disease, unspecified; Z96.651 Presence of right artificial knee joint; K21.9 Gastro-esophageal reflux disease without esophagitis; K59.00 Constipation, unspecified; K44.9 Diaphragmatic hernia without obstruction or gangrene; Z51.5 Encounter for palliative care; Z75.1 Person awaiting admission to adequate facility elsewhere; Z82.49 Family history of ischemic heart disease and other diseases of the circulatory system; Z95.1 Presence of aortocoronary bypass graft; Z86.010 Personal history of colon polyps; Z79.899 Other long term (current) drug therapy; Z88.0 Allergy status to penicillin; Z87.891 Personal history of nicotine dependence; Z90.710 Acquired absence of both cervix and uterus; Z88.5 Allergy status to narcotic agent; Z68.37 Body mass index [BMI] 37.0-37.9, adult
CPT/HCPCS: 36415; 36600; 71010; 80048; 80053; 80061; 81003; 82040; 82150; 82330; 82728; 82784; 82800; 82803; 82810; 82947; 82962; 83036; 83516; 83540; 83550; 83690; 83735; 83880; 84100; 84132; 84295; 84443; 84484; 85014; 85018; 85025; 85049; 85347; 85520; 85610; 85651; 85730; 86677; 86704; 86706; 86708; 86803; 86850; 86900; 86923; 87040; 87046; 87070; 87077; 87081; 87086; 87186; 87205; 87340; 93005; 93306; 93312; 93321; 93325; 93458; 93880; 93970; 94002; 94640; 96374; 99156; 99157; C1760; C1894; J0697; J1644; J1756; J1815; J1940; J2250; J2260; J2405; J2704; J2720; J3010; J3370; J3475; J3480; J3490; J7613; P9041; P9045; P9047; C1751; C9113; J0171; J2270; J2370; J2440; J2930; J7030; J7050; P9016; P9035; Q9967

== ENCOUNTER → 2017-05-31 | Outpatient (CLI) | payer MEDICARE ==
[~2017-05-31] MED LIST changes: +ALBU8.5H3 INH; +ASPI-496 PO; +ATOR80TA75 PO; +BECL8.7A5 INH; +BUDE10.2 INH; +CARV6.252 PO; +CIME300T PO; +CLOB15CR19 TP; +FEXO180T5 PO; +FLUT16SP NAS; +FURO-93 PO; +GLIP5TAB10 PO; +HYDR4CRE5 TP; +LANS15CA5 PO; +LISI5TAB7 PO; +METF10002 PO; +MONT10TA9 PO; +MULT-717 PO; -PANTOPRAZOLE 40 MG IV IVPush ONE; +PARO40TA3 PO; +PIOG15TA4 PO; +POTA10TA90 PO; +SUCR1TAB26 PO; +TEMA15CA6 PO; +TIOT18CA INH
== END | disposition home or self-care (01) ==
LOC: CFH 15:54
PROVIDERS: ATTEND Internal Medicine Cardiovascular Disease
DX: I25.10 Atherosclerotic heart disease of native coronary artery without angina pectoris (principal); I35.0 Nonrheumatic aortic (valve) stenosis; I51.7 Cardiomegaly; I10 Essential (primary) hypertension; E78.5 Hyperlipidemia, unspecified; I25.2 Old myocardial infarction; Z95.1 Presence of aortocoronary bypass graft; Z87.01 Personal history of pneumonia (recurrent); Z87.891 Personal history of nicotine dependence
CPT/HCPCS: 71020; 93306